=== PATIENT | male | born 2000 | race Two or more races ===

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

== ENCOUNTER 2019-02-16 12:26 | Emergency (ER) | payer MEDICAID ==
[~2019-02-16] VITALS: Ht 167.6 cm; Wt 68.0 kg
[2019-02-16 12:41] VITALS: BP 113/59
== END 2019-02-16 13:44 | disposition home or self-care (01) ==
LOC: ER 12:26
DX: J01.90 Acute sinusitis, unspecified (principal)
CPT/HCPCS: 70450

== ENCOUNTER 2021-05-27 21:18 | Emergency (ER) | payer MEDICAID ==
[~2021-05-27] VITALS: Ht 170.2 cm; Wt 97.5 kg
[2021-05-27] MEDS ORDERED: KETAMINE 50mg/ML 10ml Vial (500mg/10ml) IV ONE (22:45)
[2021-05-27 23:24] VITALS: BP 132/77
[2021-05-27] MEDS ORDERED: HYDROmorphone HCL 2 MG/ML VL IV ONE (23:30)
[2021-05-27] MEDS ORDERED: KETOROLAC TROMETH 30 MG/ML 1ML VIAL IV ONE (23:30)
== END 2021-05-28 00:41 | disposition home or self-care (01) ==
LOC: EDBD 21:18 → ER 21:20
DX: M24.411 Recurrent dislocation, right shoulder (principal); X50.1XXA Overexertion from prolonged static or awkward postures, initial encounter; Y93.67 Activity, basketball; Y92.89 Other specified places as the place of occurrence of the external cause; Y99.8 Other external cause status
CPT/HCPCS: 73020; 73030; 96374; 96375; 99284; J1170; J1885